=== PATIENT | male | born 1960 | race Caucasian/White ===

== ENCOUNTER 2018-11-08 12:31 | Outpatient (RCR) | payer OTHER ==
[2018-11-08 12:48] LABS: BASOPHILS % (AUTO) 0 % (0-10); EOSINOPHILS # (AUTO) 0.1 10^3/uL (0.0-0.3); EOSINOPHILS % (AUTO) 2 % (0-10); HEMATOCRIT 42 % (40-54); HEMOGLOBIN 14.4 G/DL (13.3-17.7); LYMPHOCYTES # (AUTO) 2.7 X 10^3 (1.0-4.0); LYMPHOCYTES % (AUTO) 36 % (12-44); MEAN CORPUSCULAR HEMOGLOBIN 34 PG (25-34); MEAN CORPUSCULAR HGB CONC 34 G/DL (32-36); MEAN CORPUSCULAR VOLUME 101 FL (80-99); MEAN PLATELET VOLUME 10.5 FL (7.4-10.4); MONOCYTES # (AUTO) 0.9 X 10^3 (0.0-1.0); MONOCYTES % (AUTO) 11 % (0-12); NEUTROPHILS # (AUTO) 3.8 X 10^3 (1.8-7.8); NEUTROPHILS % (AUTO) 51 % (42-75); PLATELET COUNT 182 10^3/uL (130-400); RED CELL DISTRIBUTION WIDTH 12.5 % (10.0-14.5); WHITE BLOOD COUNT 7.5 10^3/uL (4.3-11.0)
== END 2019-02-06 | disposition home or self-care (01) ==
LOC: LAB 12:31
PROVIDERS: ATTEND Pediatrics
DX: R19.7 Diarrhea, unspecified (principal)
CPT/HCPCS: 36415; 85025; 87015; 87045; 87046; 87328; 87329; 87899

== ENCOUNTER 2019-07-16 22:39 | Inpatient (IN) | payer SELFPAY ==
[~2019-07-16] VITALS: Ht 164 cm; Wt 108.0 kg
[2019-07-16 23:06] LABS: CLARITY,URINE CLEAR; COLOR,URINE YELLOW; GLUCOSE, URINE (UA) NEGATIVE (NEGATIVE); PH,URINE 6.5 (5-9); PROTEIN,URINE 2+ (NEGATIVE)
[2019-07-16 23:07] LABS: KETONES,URINE NEGATIVE (NEGATIVE); NITRITE,URINE NEGATIVE (NEGATIVE)
[2019-07-16 23:08] LABS: BACTERIA,URINE TRADE /HPF; BILIRUBIN,URINE 1+ (NEGATIVE); LEUKOCYTE ESTERASE ,URINE NEGATIVE (NEGATIVE)
[2019-07-16] MEDS ORDERED: ONDANSETRON 4 MG/2 ML (SDV) Z0FRAN IVP ONE (23:15)
[2019-07-16] MEDS ORDERED: fentaNYL INJECTION 100 MCG/2 ML AMP IVP ONE (23:15)
[2019-07-16] MEDS ORDERED: IOHEXOL 350 MG/ML 150 ML (OMNIPAQUE 350) VIAL IV ONE (23:15)
[2019-07-16] MEDS ORDERED: HOLD METFORMIN - RECEIVED CONTRAST 20 ML VIAL IV SCH (23:15)
[2019-07-16] MEDS ORDERED: LACTATED RINGERS 1,000 ML IV SCH (23:15)
[2019-07-16] MEDS ORDERED: CATHETER FLUSH 10 ML SYR IV PRN (23:15)
[2019-07-16] MEDS ORDERED: NS 100 ML (IVPB) BAG IV ONE (23:15)
--- NOTE | 2019-07-16 23:15 | ED Abdominal Pain ---
General Stated Complaint: VOMITING; DIARRHEA; LWR BACK PAIN Source of Information: Patient Exam Limitations: No Limitations History of Present Illness Date Seen by Provider: Jul 16, 2019 Time Seen by Provider: 22:49 Initial Comments patient presents to ER with his spouse with chief complaint of abdominal pain worsening over the past couple days. Today's become more severe and his Percocet that he uses for his back pain did not touch it. His pain is in his all of her belly as well as in his bilateral low back pain. He says last time it happened like this he had to have his abdominal aortic aneurysm ballooned. He's had difficulty with walking and feeling like he is getting worsening pain in his legs just like before he had to have his iliacs stented open. He's had a percutaneous stent of his aortic aneurysm as well as both iliacs. He's not having any dysuria fever chills or to give some nausea earlier. He had a bowel movement earlier today. He is not feeling nauseated presently. He's had his gallbladder out surgically. He follows with Dr. Mcclellan, cardiology. His abdominal aortic aneurysm was at [facility]. He's been under a lot of stress for the past couple days because he recently lost son and qlplfyre-bc-cdt in a traumatic way. Dr. Juarez started him on citalopram 3 days ago and he was concerned maybe that was causing his abdominal pain. He does not use oxygen at baseline. Allergies and Home Medications Allergies Coded Allergies: No Known Drug Allergies (Unverified , 07/16/19) Patient Home Medication List Home Medication List Reviewed: Yes Review of Systems Review of Systems Constitutional: No chills, No malaise EENTM: No Blurred Vision, No Double Vision Respiratory: Denies Cough, Denies Orthopnea Cardiovascular: Denies Chest Pain, Denies Lightheadedness Gastrointestinal: Denies Abdomen Distended; Abdominal Pain; Denies Blood Streaked Stools, Denies Constipated, Denies Diarrhea; Nausea, Poor Fluid Intake, Vomiting Genitourinary: Denies Burning, Denies Discharge Musculoskeletal: see HPI, back pain; No joint pain, No joint swelling, No neck pain Skin: No change in color, No dryness Psychiatric/Neurological: See HPI; Denies Anxiety, Denies Depressed All Other Systems Reviewed Negative Unless Noted: Yes Past Mruvheu-Dxfnqc-Ybsweq Hx Patient Social History Alcohol Use: Denies Use Recreational Drug Use: No Smoking Status: Never a Smoker Recent Foreign Travel: No Physical Exam Vital Signs Vital Signs - First Documented 07/16/19 23:48 Temp 36.7 Pulse 84 Resp 22 B/P (MAP) 143/62 (89) Pulse Ox 94 O2 Delivery Nasal Cannula O2 Flow Rate 2.00 Capillary Refill : Height/Weight/BMI Height: '" Weight: lbs. oz. kg; BMI Method: General Appearance: WD/WN, no apparent distress HEENT: PERRL/EOMI, normal ENT inspection, pharynx normal (oropharynx is mildly dry) Neck: non-tender, full range of motion Respiratory: chest non-tender, no accessory muscle use, respiratory distress (m ild), decreased breath sounds Cardiovascular: normal peripheral pulses, regular rate, rhythm, no edema Peripheral Pulses: 2+ Radial Pulses (R), 2+ Radial Pulses (L) Gastrointestinal: normal bowel sounds (quiescent), soft, no organomegaly; No guarding, No rebound; tenderness (all 4 quadrants), other (. Negative for Mc [place]'s point tenderness, Rovsing sign) Back: normal inspection, no vertebral tenderness Neurologic/Psychiatric: alert, normal mood/affect, oriented x 3 Focused Exam Lactate Level 07/16/19 23:06: Lactic Acid Level 1.25 Lactic Acid Level Laboratory Tests Test 07/16/19 23:06 Lactic Acid Level 1.25 MMOL/L (0.50-2.00) Progress/Results/Core Measures Results/Orders Lab Results Laboratory Tests Test 07/16/19 22:55 07/16/19 23:06 07/16/19 23:28 Range/Units Urine Color YELLOW Urine Clarity CLEAR Urine pH 6.5 5-9 Urine Specific [place] 1.020 1.016-1.022 Urine Protein 2+ H NEGATIVE Urine Glucose (UA) NEGATIVE NEGATIVE Urine Ketones NEGATIVE NEGATIVE Urine Nitrite NEGATIVE NEGATIVE Urine Bilirubin 1+ H NEGATIVE Urine Urobilinogen 0.2 < = 1.0 MG/DL Urine Leukocyte Esterase NEGATIVE NEGATIVE Urine RBC (Auto) NEGATIVE NEGATIVE Urine RBC NONE /HPF Urine WBC NONE /HPF Urine Crystals NONE /LPF Urine Bacteria TRADE /HPF Urine Casts NONE /LPF Urine Mucus NEGATIVE /LPF Urine Culture Indicated NO White Blood Count 11.8 H 4.3-11.0 10^3/uL Red Blood Count 5.75 4.35-5.85 10^6/uL Hemoglobin 19.0 H 13.3-17.7 G/DL Hematocrit 60 H 40-54 % Mean Corpuscular Volume 104 H 80-99 FL Mean Corpuscular Hemoglobin 33 25-34 PG Mean Corpuscular Hemoglobin Concent 32 32-36 G/DL Red Cell Distribution Width 15.0 H 10.0-14.5 % Platelet Count 150 130-400 10^3/uL Mean Platelet Volume 11.5 H 7.4-10.4 FL Neutrophils (%) (Auto) 92 H 42-75 % Lymphocytes (%) (Auto) 3 L 12-44 % Monocytes (%) (Auto) 5 0-12 % Eosinophils (%) (Auto) 0 0-10 % Basophils (%) (Auto) 0 0-10 % Neutrophils # (Auto) 10.9 H 1.8-7.8 X 10^3 Lymphocytes # (Auto) 0.3 L 1.0-4.0 X 10^3 Monocytes # (Auto) 0.6 0.0-1.0 X 10^3 Eosinophils # (Auto) 0.0 0.0-0.3 10^3/uL Basophils # (Auto) 0.0 0.0-0.1 10^3/uL Neutrophils % (Manual) 90 % Monocytes % (Manual) 6 % Reactive Lymphocytes 4 % Macrocytosis SLIGHT Sodium Level 139 135-145 MMOL/L Potassium Level 3.9 3.6-5.0 MMOL/L Chloride Level 89 L 98-107 MMOL/L Carbon Dioxide Level 33 H 21-32 MMOL/L Anion Gap 17 H 5-14 MMOL/L Blood Urea Nitrogen 32 H 7-18 MG/DL Creatinine 1.25 0.60-1.30 MG/DL Estimat Glomerular Filtration Rate 59 BUN/Creatinine Ratio 26 Glucose Level 145 H 70-105 MG/DL Lactic Acid Level 1.25 0.50-2.00 MMOL/L Calcium Level 9.7 8.5-10.1 MG/DL Corrected Calcium 9.3 8.5-10.1 MG/DL Total Bilirubin 0.6 0.1-1.0 MG/DL Aspartate Amino Transf (AST/SGOT) 58 H 5-34 U/L Alanine Aminotransferase (ALT/SGPT) 83 H 0-55 U/L Alkaline Phosphatase 102 40-136 U/L Troponin I < 0.30 <0.30 NG/ML Total Protein 8.5 H 6.4-8.2 GM/DL Albumin 4.5 3.2-4.5 GM/DL Lipase 10 8-78 U/L Blood Gas Puncture Site LEFT WRIST Blood Gas Patient Temperature 36.7 Arterial Blood pH 7.36 L 7.37-7.43 Arterial Blood Partial Pressure CO2 71 *H 35-45 MMHG Arterial Blood Partial Pressure O2 63 L 79-93 MMHG Arterial Blood HCO3 40 H 23-27 MMOL/L Arterial Blood Total CO2 42.3 H 21.0-31.0 MMOL/L Arterial Blood Oxygen Saturation 91 L 94-100 % Arterial Blood Base Excess 11.8 H -2.5-2.5 MMOL/L Mani Test NEGATIVE Blood Gas Ventilator Setting NO Blood Gas Inspired Oxygen 2 My Orders Orders - MAHSA ROSARIO Ua Culture If Indicated (07/16/19 22:44) Ed Iv/Invasive Line Start (07/16/19 23:05) Ekg Tracing (07/16/19:05) Troponin I Fs (07/16/19 23:05) Cbc With Automated Diff (07/16/19:05) Comprehensive Metabolic Panel (07/16/19 23:05) Lactic Acid Analyzer (07/16/19 23:05) Lactated Ringers (Lr 1000 Ml Iv Solution (07/16/19 23:15) Lipase (07/16/19 23:05) Fentanyl Injection (Sublimaze Injection (07/16/19 23:15) Ct Abdomen/Pelvis W (07/16/19 23:05) Ondansetron Injection (Zofran Injectio (07/16/19 23:15) Iohexol Injection (Omnipaque 350 Mg/Ml 1 (07/16/19 23:15) Received Contrast (Hold Metformin- Contr (07/16/19 23:15) Sodium Chloride Flush (Catheter Flush Sy (07/16/19 23:15) Ns (Ivpb) (Sodium Chloride 0.9% Ivpb Bag (07/16/19 23:15) Arterial Blood Gas (07/16/19 23:16) Chest Pa/Lat (2 View) (07/16/19 23:16) Manual Differential (07/16/19 23:06) Albuterol/Ipra Inhalation Soln (Duoneb I (07/17/19 00:45) Svn Small Volume Nebulizer (07/17/19 00:38) Methylprednisolone Sod Succ (Solu-Medrol (07/17/19 00:45) Acetaminophen Tablet (Tylenol Tablet) (07/17/19 01:00) Medications Given in ED Current Medications Medications Dose Ordered Sig/Christal Route Start Time Stop Time Status Last Admin Dose Admin Acetaminophen 1,000 mg ONCE ONCE PO 07/17/19 01:00 07/17/19 01:01 DC 07/17/19 01:08 1,000 MG Albuterol/ Ipratropium 3 ml ONCE ONCE INH 07/17/19 00:45 07/17/19 00:46 DC 07/17/19 00:44 3 ML Fentanyl Citrate 100 mcg ONCE ONCE IVP 07/16/19 23:15 07/16/19 23:16 DC 07/16/19 23:20 100 MCG Iohexol 125 ml ONCE ONCE IV 07/16/19 23:15 07/16/19 23:17 DC 07/17/19 00:01 125 ML Methylprednisolone Sodium Succinate 40 mg ONCE ONCE IV 07/17/19 00:45 07/17/19 00:46 DC 07/17/19 00:44 40 MG Ondansetron HCl 4 mg ONCE ONCE IVP 07/16/19 23:15 07/16/19 23:16 DC 07/16/19 23:20 4 MG Sodium Chloride 10 ml NEEDED PRN IV 07/16/19 23:15 07/17/19 00:02 10 ML Sodium Chloride 100 ml ONCE ONCE IV 07/16/19 23:15 07/16/19 23:17 DC 07/17/19 00:01 80 ML Vital Signs/I&O 07/16/19 23:48 Temp 36.7 Pulse 84 Resp 22 B/P (MAP) 143/62 (89) Pulse Ox 94 O2 Delivery Nasal Cannula O2 Flow Rate 2.00 Progress Progress Note #1: Time: 23:14 Progress Note Labs and imaging of his abdomen. Concern because he is a vasculopath he could be having mesenteric ischemia, abdominal aortic aneurysm/dissection, gastroenteritis, pancreatitis, colitis or bowel obstruction. They did put him on 2 L by nasal cannula as he was consistently 86-88% on room air. We'll obtain chest x-ray and an ABG. Progress Note #2: Time: 00:36 Progress Note Gastroenteritis seems like the most likely cause of his abdominal discomfort nausea and vomiting. His weakness shortness of breath and hypoxia on arrival but more likely be due to a COPD exacerbation. He still smokes about a pack and a half cigarettes per day. His lungs are very tight so we'll give him a DuoNeb get a 2 view chest x-ray. Progress Note #3: Time: 00:56 Progress Note Pain is significantly improved. After the breathing treatment his breathing is subjectively better and he has about 20% more airflow heard on auscultation. Still no wheezing. On 2 L his oxygen sats are staying in the mid to low 90s. Again we have encouraged him to go inpatient and he is hesitant. He wants to talk to his about it who is out making a phone call. Progress Note #4: Time: 01:21 Progress Note After multiple discussions with the patient and his family has agreed to go the hospital however he wants to have his drive him there. We have explained to him that she does not have oxygen or the ability to move him in a timely fashion if something were to happen between here and there. He says he accepts these risks. We have explained to him that he could get worse to the point where he may need more critical interventions upon arrival then if he would just go by a mbulance. We've also explained to him that his risk of even go as far as disability or and its against our medical advice to go with private vehicle. He is accepted these risks so were going to allow him to transit by private vehicle to [facility]. Initial ECG Impression Date: Jul 16, 2019 Initial ECG Impression Time: 23:06 Initial ECG Rate: 82 Initial ECG Rhythm: Normal Sinus Initial ECG Intervals: QT (470) Initial ECG Impression: Normal, Nonspecific Changes Initial ECG Comparisson: No Previous ECG Available Comment PVCs. No ST elevation or depression. Normal sinus rhythm. Diagnostic Imaging Diagonstic Imaging: CT Plain Films/CT/US/NM/MRI: abdomen, pelvis Comments Nonspecific fluid in nondistended small bowel and the right colon. Minimally distended stomach with fluid. Consider gastroenteritis. Reviewed: Reviewed [place] Study, Reviewed by Me Diagonstic Imaging: Xray Plain Films/CT/US/NM/MRI: chest (2v) Comments No acute cardiopulmonary process noted on a 2 view chest x-ray. Reviewed: Reviewed by Me Departure Communication (Admissions) Time/Spoke to Admitting Phy: 01:20 Discussed case lab imaging findings with Dr. Mann she agrees to accept the patient for admission to the stepdown unit on Vapotherm. Impression Primary Impression: COPD with exacerbation Additional Impressions: Respiratory failure with hypoxia and hypercapnia Qualified Codes: J96.21 - Acute and chronic respiratory failure with hypoxia; J96.22 - Acute and chronic respiratory failure with hypercapnia Gastroenteritis and colitis, viral Disposition: ADMITTED INPATIENT Condition: Stable Admissions Decision to Admit Reason: Admit from ER (General) Decision to Admit/Date: Jul 17, 2019 Time/Decision to Admit Time: 00:37 Departure-Patient Inst. Referrals: MIO JUAREZ MD (PCP/Family) Primary Care Physician MAHSA ROSARIO Jul 16, 2019 23:15 POS
[2019-07-16 23:41] LABS: ABG PCO2 71 MMHG (35-45); ABG PH 7.36 (7.37-7.43)
[2019-07-16 23:42] LABS: ABG BASE EXCESS 11.8 MMOL/L (-2.5-2.5); ABG OXYGEN SATURATION 91 % (94-100); ABG PO2 63 MMHG (79-93); ABG TCO2 42.3 MMOL/L (21.0-31.0); ALLENS TEST NEGATIVE; INSPIRED O2 2; PATIENT TEMP 36.7; VENTILATOR NO
[2019-07-16 23:44] LABS: BUN/CREATININE RATIO 26; CALCIUM 9.7 MG/DL (8.5-10.1); CARBON DIOXIDE 33 MMOL/L (21-32); CHLORIDE 89 MMOL/L (98-107); CREATININE SERUM 1.25 MG/DL (0.60-1.30); GFR ESTIMATED 59; GLUCOSE 145 MG/DL (70-105); POTASSIUM 3.9 MMOL/L (3.6-5.0); SODIUM 139 MMOL/L (135-145)
[2019-07-16 23:45] LABS: ALANINE AMINOTRANSFERASE 83 U/L (0-55); ALBUMIN 4.5 GM/DL (3.2-4.5); ALKALINE PHOSPHATASE 102 U/L (40-136); BILIRUBIN,TOTAL 0.6 MG/DL (0.1-1.0); LIPASE 10 U/L (8-78); TOTAL PROTEIN 8.5 GM/DL (6.4-8.2)
[2019-07-17] VITALS (23 sets, daily range): BP systolic 121–162; BP diastolic 60–119
[2019-07-17 00:08] LABS: BASOPHILS % (AUTO) 0 % (0-10); EOSINOPHILS % (AUTO) 0 % (0-10); HEMATOCRIT 60 % (40-54); LYMPHOCYTES # (AUTO) 0.3 X 10^3 (1.0-4.0); LYMPHOCYTES % (AUTO) 3 % (12-44); MEAN CORPUSCULAR HEMOGLOBIN 33 PG (25-34); MEAN CORPUSCULAR HGB CONC 32 G/DL (32-36); MEAN CORPUSCULAR VOLUME 104 FL (80-99); MEAN PLATELET VOLUME 11.5 FL (7.4-10.4); MONOCYTES # (AUTO) 0.6 X 10^3 (0.0-1.0); MONOCYTES % (AUTO) 5 % (0-12); NEUTROPHILS # (AUTO) 10.9 X 10^3 (1.8-7.8); NEUTROPHILS % (AUTO) 92 % (42-75); PLATELET COUNT 150 10^3/uL (130-400); WHITE BLOOD COUNT 11.8 10^3/uL (4.3-11.0)
[2019-07-17 00:15] LABS: MONOCYTES % (MANUAL) 6 %; NEUTROPHILS % (MANUAL) 90 %; REACTIVE LYMPHOCYTES 4 %
[2019-07-17] MEDS ORDERED: methylPREDNISolone 40 MG/ML (Solu-MEDROL) VIAL IV ONE (00:45)
[2019-07-17] MEDS ORDERED: RT-ALBUTEROL/IPRATROPIUM 3 ML (DUONEB) VIAL INH ONE (00:45)
[2019-07-17] MEDS ORDERED: ACETAMINOPHEN 500 MG TAB (TYLENOL) PO ONE (01:00)
--- NOTE | 2019-07-17 01:19 | NUR ---
Patient is refusing to go to [facility] by ambulance for admission. Patient is insistent on going POV. Patient is currently on 2 liters of oxygen and is unable to maintain SPO2. Patient is advised that if he goes POV, he will not have access to oxygen and he is currently unable to maintain his SPO2. Patient is advised that if he goes POV he could have a decline in condition up to and including . Patient is also advised that if he goes by ambulance, he could have continued monitoring and intervention of any problems that may arise. Patient acknowledges verbally the risks and benefits. Patient still wants to go POV. Refusal form is signed.
[2019-07-17] MEDS ORDERED: RT-ALBUTEROL/IPRATROPIUM 3 ML (DUONEB) VIAL INH PRN (05:30)
[2019-07-17 05:35] LABS: BASOPHILS % (AUTO) 0 % (0-10); EOSINOPHILS % (AUTO) 0 % (0-10); HEMATOCRIT 58 % (40-54); HEMOGLOBIN 18.4 G/DL (13.3-17.7); LYMPHOCYTES # (AUTO) 0.3 X 10^3 (1.0-4.0); LYMPHOCYTES % (AUTO) 2 % (12-44); MEAN CORPUSCULAR HEMOGLOBIN 32 PG (25-34); MEAN CORPUSCULAR HGB CONC 32 G/DL (32-36); MEAN CORPUSCULAR VOLUME 102 FL (80-99); MEAN PLATELET VOLUME 11.4 FL (7.4-10.4); MONOCYTES # (AUTO) 0.2 X 10^3 (0.0-1.0); MONOCYTES % (AUTO) 2 % (0-12); NEUTROPHILS # (AUTO) 12.1 X 10^3 (1.8-7.8); NEUTROPHILS % (AUTO) 96 % (42-75); PLATELET COUNT 170 10^3/uL (130-400); RED CELL DISTRIBUTION WIDTH 14.7 % (10.0-14.5); WHITE BLOOD COUNT 12.7 10^3/uL (4.3-11.0)
--- NOTE | 2019-07-17 05:38 | Pulmonary Consultation ---
History of Present Illness History of Present Illness Date Seen by Provider: Jul 17, 2019 Time Seen by Provider: 05:33 Date of Admission History of Present Illness 58yo with hx of aortic aneurysm presented to ED secondary to worsening abdominal pain. He's had difficulty with walking and feeling like he is getting worsening pain in his legs just like before he had to have his iliacs stented open. Pt was found to have COPDAE while in the ED. ABG shows acute respiratory acidosis. Allergies and Home Medications Allergies Coded Allergies: No Known Drug Allergies (Unverified , 07/16/19) Past Yrbeeew-Ucimfa-Tgcfir Hx Patient Social History Alcohol Use: Denies Use Recreational Drug Use: No Smoking Status: Never a Smoker Type Used: Cigarettes Recent Foreign Travel: No Contact w/Someone Who Travel: No Recent Infectious Disease Expo: No Physical Abuse: No Sexual Abuse: No Mistreated: No Fear: No Immunizations Up To Date Date of Influenza Vaccine: Jun 16, 2019 Seasonal Allergies Seasonal Allergies: No Past Medical History Surgeries: Yes (Aortic Stents) Gallbladder Respiratory: No Cardiac: Yes Aneurysm Neurological: No Genitourinary: No Gastrointestinal: No Musculoskeletal: No Endocrine: No HEENT: No Cancer: No Psychosocial: No Integumentary: No Review of Systems Time Seen by Provider: 07:40 Constitutional: Chills, Sweats, Weakness, Malaise; No: Fever Eyes: No: Pain, Vision change, Conjunctivae inflammation, Eyelid inflammation, Other, Redness ENT: Nose congestion; No: Ear pain, Ear discharge, Nose pain, Nose discharge, Mouth pain, Mouth swelling, Throat pain, Throat swelling, Other Respiratory: Cough, Shortness of breath, SOB with excertion, Wheezing, Sputum Cardiovascular: Palpitations, Orthopnea, Paroxysmal Noc. Dyspnea; No: Chest Pain, Edema, Lt Headedness, Other Gastrointestinal: No: Nausea, Vomiting, Abdominal Pain, Diarrhea, Constipation, Melena, Hematochezia, Other Sepsis Event Evaluation Height, Weight, BMI Height: '" Weight: lbs. oz. kg; 41.00 BMI Method: Exam Exam Vital Signs Date Time Temp Pulse Resp B/P (MAP) Pulse Ox O2 Delivery O2 Flow Rate FiO2 07/17/19 05:14 87 94 07/17/19 01:38 104 26 116/63 92 Nasal Cannula 2.00 07/16/19 23:48 36.7 84 22 143/62 (89) 94 Nasal Cannula 2.00 I & O 07/17/19 07:00 Intake Total 1000 ml Balance 1000 ml Height & Weight Height: '" Weight: lbs. oz. kg; 41.00 BMI Method: General Appearance: Anxious, Chronically ill, Moderate Distress, Obese HEENT: PERRL/EOMI, Pharynx Normal Neck: Full Range of Motion, Non Tender, Supple Respiratory: Chest Non Tender, Crackles, Decreased Breath Sounds Cardiovascular: Regular Rate, Rhythm, No Edema, No Gallop Capillary Refill: Less Than 3 Seconds Peripheral Pulses: 2+ Radial Pulses (R), 2+ Radial Pulses (L) Gastrointestinal: normal bowel sounds (quiescent), soft, no organomegaly; No guarding, No rebound; tenderness (all 4 quadrants), other (. Negative for McBurney's point tenderness, Rovsing sign) Neurologic/Psychiatric: Alert, Oriented x3 Skin: Normal Color, Warm/Dry Lymphatic: No Adenopathy Results Lab Laboratory Tests 07/16/19 23:06 Assessment/Plan Assessment/Plan Acute on chronic respiratory failure -vent to mask PRN -Pt would benefit from home vent to mask -C02 71 COPDAE- Pt does not have 02 -SVNS -Solumedrol -Repeat ABG at 1300 -vent to mask PRN OHS Hx of abdominal aortic aneurysm SANDRA SHEPARD DO Jul 17, 2019 05:38 POS
[2019-07-17 05:58] LABS: ALBUMIN 4.1 GM/DL (3.2-4.5); BILIRUBIN,TOTAL 0.4 MG/DL (0.1-1.0); CALCIUM 8.9 MG/DL (8.5-10.1); CREATININE SERUM 1.41 MG/DL (0.60-1.30); MAGNESIUM 1.7 MG/DL (1.6-2.4); PHOSPHORUS 2.5 MG/DL (2.3-4.7); TOTAL PROTEIN 7.3 GM/DL (6.4-8.2)
[2019-07-17] MEDS ORDERED: PROMETHAZINE INJ 25 MG/ML (PHENERGAN) AMP IV PRN (06:15)
[2019-07-17] MEDS ORDERED: KETAMINE 50 MG/ML 10 ML VIAL IV PRN (06:15)
[2019-07-17] MEDS ORDERED: ONDANSETRON 4 MG/2 ML (SDV) Z0FRAN IV PRN (06:15)
[2019-07-17] MEDS ORDERED: MIDAZOLAM 5 MG/5 ML (VERSED) VIAL IV PRN (06:15)
[2019-07-17] MEDS: LACTATED RINGERS 1,000 ML IV SCH ×2 (06:15→18:07)
--- NOTE | 2019-07-17 06:32 | Diagnostic Imaging Report ---
PROCEDURE: CT abdomen and pelvis with contrast. TECHNIQUE: Multiple contiguous axial images were obtained through the abdomen and pelvis after administration of intravenous contrast. Auto Exposure Controls were utilized during the CT exam to meet ALARA standards for radiation dose reduction. INDICATION: Abdominal pain, nausea, vomiting, diarrhea. FINDINGS: There is mildly elevated intraluminal fluid load within the stomach, small bowel and proximal colon, no transition zone. No milind obstruction. Pattern raises the question of nonspecific gastroenteritis. No substantial bowel wall thickening and there was no pericolonic or perienteric edema. The gallbladder surgically absent. The bile ducts unremarkable for postcholecystectomy state. The spleen, adrenals and pancreas negative. The aortoiliac vessels calcified. No aneurysm, adenopathy or mass. There is no appendicitis or diverticulitis. IMPRESSION: 1. Nonobstructive pattern, however, increased fluid load within the bowel raises the question of nonspecific gastroenteritis. No segmental bowel wall thickening, perforation, obstruction or abscess. 2. Prior cholecystectomy with unremarkable unobstructed urinary tracts Dictated by: Dictated on workstation # [id number]
[2019-07-17 07:21] LABS: ABG BASE EXCESS 8.4 MMOL/L (-2.5-2.5); ABG OXYGEN SATURATION 97 % (94-100); ABG PCO2 54 MMHG (35-45); ABG PH 7.41 (7.37-7.43); ABG PO2 88 MMHG (79-93); ABG TCO2 34.8 MMOL/L (21.0-31.0)
[2019-07-17 07:23] LABS: ALLENS TEST YES-POS; INSPIRED O2 5; PATIENT TEMP 37.1; VENTILATOR NO
[2019-07-17] MEDS: RT-ALBUTEROL/IPRATROPIUM 3 ML (DUONEB) VIAL INH SCH ×5 (07:36→23:06)
--- NOTE | 2019-07-17 08:21 | Diagnostic Imaging Report ---
INDICATION: Desaturation, shortness of breath FINDINGS: Air trapping and COPD chronic. No focal consolidation, effusion or pneumothorax. There is some thickening of the central airways and a component of reactive airway disease could not be excluded. IMPRESSION: No consolidating pneumonia. Mild thickening of the central airways and mild symmetrical air trapping. No failure pattern or pleural abnormality. Dictated by: Dictated on workstation # [id number]
[2019-07-17] MEDS: methylPREDNISolone 40 MG/ML (Solu-MEDROL) VIAL IV SCH ×3 (08:23→18:07)
--- NOTE | 2019-07-17 08:59 | History & Physical-Hospitalist ---
History of Present Illness HPI/Chief Complaint Pt is a 58yoCM with a PMH of PAD and COPD who presented to the ER due to abdominal pain, vomiting, and diarrhea. Definitive symptoms started yesterday morning and progressed throughout the day. He BMB get cramping abdominal pain and was unable to keep anything down so decided to seek evaluation in the emergency room. He was found to be quite short of breath on arrival and an ABG revealed hypercapnic respiratory failure. He was admitted to the ICU for his respiratory status. He denies a known diagnosis of COPD but he does smoke a pack and a half a day and uses a rescue inhaler as needed. He is on no other in halers. His only other medications are Percocet and Lasix. He reports he takes his Lasix when necessary for water retention but denies a history of heart failure. He follows with Dr. Mcclellan at [facility] for his heart disease. He denies any abdominal symptoms today. He is still on 5 L per NC and he normally does not wear oxygen at home. Source: patient Date Seen 07/17/19 Time Seen by a Provider: 08:53 Attending Physician Lorenzo Garcia MD PCP Pola Hayward MD Referring Physician Date of Admission Jul 17, 2019 at 01:25 Home Medications & Allergies Home Medications Reviewed patient Home Medication Reconciliation performed by pharmacy medication reconciliations metrology technician and/or nursing. Patients Allergies have been reviewed. Allergies Allergies Coded Allergies No Known Drug Allergies (Uijyovwipg97/23/19) Past Hrycfpv-Nvlunj-Rvitue Hx Past Med/Social Hx: Reviewed Nursing Past Med/Soc Hx Patient Social History Alcohol Use: Denies Use Recreational Drug Use: No Smoking Status: Current Everyday Smoker Cigaretts per day: 30 Type Used: Cigarettes Recent Foreign Travel: No Contact w/other who traveled: No Recent Infectious Disease Expo: No Immunizations Up To Date Date of Influenza Vaccine: Jun 16, 2019 Seasonal Allergies Seasonal Allergies: No Past Medical History Surgeries: Gallbladder AAA graft Respiratory: COPD Cardiac: Aneurysm, Peripheral Vascular Family History Reviewed Nursing Family Hx No Pertinent Family Hx Review of Systems Constitutional: No chills, No fever Respiratory: No dyspnea on exertion; short of breath, wheezing Cardiovascular: no symptoms reported Gastrointestinal: abdominal pain, diarrhea, nausea, vomiting Genitourinary: no symptoms reported Musculoskeletal: back pain (chronic) Skin: no symptoms reported Psychiatric/Neurological: No Symptoms Reported Physical Exam Physical Exam Vital Signs Vital Signs - First Documented 07/16/19 23:48 Temp 36.7 Pulse 84 Resp 22 B/P (MAP) 143/62 (89) Pulse Ox 94 O2 Delivery Nasal Cannula O2 Flow Rate 2.00 Capillary Refill : Less Than 3 Seconds Height, Weight, BMI Height: '" Weight: lbs. oz. kg; 41.00 BMI Method: General Appearance: No Apparent Distress, WD/WN, Obese HEENT: Moist Mucous Membranes; No Scleral Icterus (L), No Scleral Icterus (R) Respiratory: Lungs Clear, No Accessory Muscle Use, No Respiratory Distress, Other (on 5lpm) Cardiovascular: Regular Rate, Rhythm, No Edema, No Murmur, Normal Peripheral Pulses Gastrointestinal: Normal Bowel Sounds, Non Tender, Soft; No Guarding, No Rebound Extremity: No Calf Tenderness, No Pedal Edema Neurologic/Psychiatric: Alert, Oriented x3, Normal Mood/Affect Skin: Normal Color, Warm/Dry Results Results/Procedures Labs Laboratory Tests 07/16/19 23:06 07/17/19 05:29 Patient resulted labs reviewed. Imaging: Reviewed Imaging Report Assessment/Plan Admission Diagnosis COPD Exacerbation with hypercapnic and hypoxic respiratory failure Admission Status: Inpatient Order (span 2 midnights) Reason for Inpatient Admission: On oxygen IV steroids, will likely take more than 2 midnights to stabilize for discharge Assessment and Plan COPD with Acute Exacerbation hypercpanic and hypoxic respiratory failure ?Obesity hypoventilation syndrome Continue IV steroids Pulm consulted, appreciate recs No evidence of pna so no abx needed Titrate oxygen to keep sats >90 MAT protocol Will add advair HTN PAD s/p AAA repair Request records from [facility] BP elevated in the 150s this AM Will likely need antihypertensives if persists after pain treated Chronic Back Pain Spinal Stenosis Continue home percocet Tobacco Abuse Recommend Cessation Diagnosis/Problems Diagnosis/Problems (1) PAD (peripheral artery disease) (2) S/P AAA repair (3) COPD with exacerbation Status: Acute (4) Gastroenteritis and colitis, viral Status: Acute (5) Respiratory failure with hypoxia and hypercapnia Status: Acute Qualifiers: Chronicity: acute on chronic Qualified Codes: J96.21 - Acute and chronic respiratory failure with hypoxia; J96.22 - Acute and chronic respiratory failure with hypercapnia Clinical Quality Measures DVT/VTE Risk/Contraindication: Risk Factor Score Per Nursin RFS Level Per Nursing on Admit: 4+=Very High LORENZO GARCIA MD Jul 17, 2019 08:58 POS
--- NOTE | 2019-07-17 09:46 | Diagnostic Imaging Report ---
INDICATION: COPD COMPARISON: 07/17/2019 at 12:17 a.m. FINDINGS: Single view of the chest demonstrates clear lungs bilaterally. The heart is normal. There is no pneumothorax. Osseous structures are age-appropriate. IMPRESSION: Negative chest Dictated by: Dictated on workstation # [id number]
[2019-07-17] MEDS: ENOXAPARIN 40 MG/0.4 ML (LOVENOX) SYR SC SCH ×2 (10:55→21:25)
[2019-07-17] MEDS: oxyCODONE/APAP 10/325MG (PERCOCET 10) TABLET PO PRN ×3 (11:01→22:48)
[2019-07-17] MEDS: fentaNYL INJECTION 100 MCG/2 ML AMP IV PRN ×3 (12:18→21:25)
[2019-07-17 13:34] LABS: ABG BASE EXCESS 9.1 MMOL/L (-2.5-2.5); ABG OXYGEN SATURATION 91 % (94-100); ABG PO2 71 MMHG (79-93); ABG TCO2 37.2 MMOL/L (21.0-31.0)
[2019-07-17 13:38] LABS: ABG PCO2 71 MMHG (35-45); ABG PH 7.32 (7.37-7.43); PATIENT TEMP 37.6
[2019-07-17] MEDS: RT-ADVAIR HFA 115/21 MCG PER PUFF IH SCH (20:37)
[2019-07-18] VITALS (19 sets, daily range): BP systolic 101–179; BP diastolic 68–129
[2019-07-18] MEDS: methylPREDNISolone 40 MG/ML (Solu-MEDROL) VIAL IV SCH ×5 (00:13→23:28)
[2019-07-18] MEDS: fentaNYL INJECTION 100 MCG/2 ML AMP IV PRN ×4 (00:13→13:58)
[2019-07-18] MEDS ORDERED: ACETAMINOPHEN 325 MG TABLET PO PRN (02:15)
[2019-07-18] MEDS: RT-ALBUTEROL/IPRATROPIUM 3 ML (DUONEB) VIAL INH SCH ×6 (02:35→21:18)
[2019-07-18 03:31] LABS: BASOPHILS % (AUTO) 0 % (0-10); EOSINOPHILS % (AUTO) 0 % (0-10); HEMATOCRIT 56 % (40-54); HEMOGLOBIN 17.6 G/DL (13.3-17.7); LYMPHOCYTES # (AUTO) 0.6 X 10^3 (1.0-4.0); LYMPHOCYTES % (AUTO) 6 % (12-44); MEAN CORPUSCULAR HEMOGLOBIN 33 PG (25-34); MEAN CORPUSCULAR HGB CONC 32 G/DL (32-36); MEAN CORPUSCULAR VOLUME 103 FL (80-99); MEAN PLATELET VOLUME 11.8 FL (7.4-10.4); MONOCYTES # (AUTO) 0.5 X 10^3 (0.0-1.0); MONOCYTES % (AUTO) 6 % (0-12); NEUTROPHILS # (AUTO) 8.2 X 10^3 (1.8-7.8); NEUTROPHILS % (AUTO) 88 % (42-75); PLATELET COUNT 140 10^3/uL (130-400); RED CELL DISTRIBUTION WIDTH 14.4 % (10.0-14.5); WHITE BLOOD COUNT 9.3 10^3/uL (4.3-11.0)
[2019-07-18 03:49] LABS: BUN/CREATININE RATIO 27; CARBON DIOXIDE 28 MMOL/L (21-32); CHLORIDE 92 MMOL/L (98-107); GFR ESTIMATED > 60; GLUCOSE 136 MG/DL (70-105); PHOSPHORUS 3.1 MG/DL (2.3-4.7); POTASSIUM 3.8 MMOL/L (3.6-5.0); SODIUM 136 MMOL/L (135-145)
[2019-07-18 06:54] LABS: ABG BASE EXCESS 9.6 MMOL/L (-2.5-2.5); ABG OXYGEN SATURATION 93 % (94-100); ABG PCO2 70 MMHG (35-45); ABG PO2 74 MMHG (79-93); ABG TCO2 37.8 MMOL/L (21.0-31.0)
[2019-07-18 06:56] LABS: ABG PH 7.33 (7.37-7.43); ALLENS TEST POSITIVE; INSPIRED O2 4 L; PATIENT TEMP 37; VENTILATOR NO
--- NOTE | 2019-07-18 06:58 | NUR ---
Updated Dr. Nur on patient's morning ABG results.
[2019-07-18] MEDS: LACTATED RINGERS 1,000 ML IV SCH (07:03)
--- NOTE | 2019-07-18 07:44 | Diagnostic Imaging Report ---
CHEST 1 VIEW, AP/PA ONLY Indication: COPD exacerbation with hypocapnia Comparison: 07/17/2019 Findings: Increased basilar opacities, greater on the right. No pleural effusion or pneumothorax. Normal heart size and mediastinal contours. Impression: 1. Increased basilar opacities may be on the basis of atelectasis. Attention on follow-up is advised. Dictated by: Dictated on workstation # [id number]
--- NOTE | 2019-07-18 07:48 | Pulmonary Progress Note ---
Subjective Time Seen by a Provider: 07:47 Subjective/Events-last exam Still complains of worsening SOB. Sepsis Event Evaluation Height, Weight, BMI Height: '" Weight: lbs. oz. kg; 41.00 BMI Method: Focused Exam Lactate Level 07/16/19 23:06: Lactic Acid Level 1.25 Exam Exam Vital Signs Date Time Temp Pulse Resp B/P (MAP) Pulse Ox O2 Delivery O2 Flow Rate FiO2 07/18/19 07:00 92 Nasal Cannula 4.00 07/18/19 06:00 66 15 164/78 (106) 95 Nasal Cannula 5.00 07/18/19 05:00 83 10 168/79 (108) 95 Nasal Cannula 5.00 07/18/19 04:00 93 Nasal Cannula 4.00 07/18/19 04:00 37.0 07/18/19 04:00 73 10 143/90 (107) 94 Nasal Cannula 5.00 07/18/19 03:00 80 16 140/109 (119) 94 Nasal Cannula 5.00 07/18/19 02:35 93 Nasal Cannula 5.00 07/18/19 02:00 70 10 140/68 (92) 95 Nasal Cannula 5.00 07/18/19 01:00 81 07/18/19 01:00 80 12 151/85 (107) 94 Nasal Cannula 5.00 07/18/19 00:00 93 Nasal Cannula 4.00 07/18/19 00:00 07/18/19 00:00 78 12 165/79 (107) 91 Nasal Cannula 5.00 07/18/19 00:00 37.2 07/17/19 23:06 92 Nasal Cannula 5.00 07/17/19 23:00 77 19 127/67 (87) 99 Nasal Cannula 5.00 07/17/19 21:00 80 15 157/75 (102) 91 Nasal Cannula 5.00 07/17/19 20:56 Nasal Cannula 5.00 07/17/19 20:55 Nasal Cannula 4.00 07/17/19 20:44 Nasal Cannula 3.00 07/17/19 20:41 Nasal Cannula 3.00 07/17/19 20:37 93 Nasal Cannula 4.00 07/17/19 20:00 93 20 140/84 (102) 97 Nasal Cannula 4.00 07/17/19 20:00 37.0 07/17/19 20:00 93 Nasal Cannula 4.00 07/17/19 19:00 80 16 134/75 (94) 94 Nasal Cannula 4.00 07/17/19 19:00 85 07/17/19 18:00 73 23 129/77 (94) 90 Nasal Cannula 3.00 07/17/19 17:00 71 14 121/92 (102) 93 Nasal Cannula 3.00 07/17/19 16:00 77 11 131/78 (95) 92 Nasal Cannula 3.00 07/17/19 16:00 35.9 07/17/19 16:00 93 Nasal Cannula 3.00 07/17/19 15:10 Nasal Cannula 3.00 07/17/19 15:00 73 9 132/75 (94) 93 Nasal Cannula 4.00 07/17/19 14:55 Nasal Cannula 4.00 07/17/19 14:54 93 Nasal Cannula 4.00 07/17/19 14:00 75 13 148/103 (118) 91 High Flow N/C 5.00 07/17/19 13:00 75 07/17/19 13:00 70 9 148/84 (105) 90 High Flow N/C 5.00 07/17/19 12:00 70 11 138/79 (98) 89 High Flow N/C 5.00 07/17/19 12:00 37.0 07/17/19 11:43 92 Nasal Cannula 5.00 07/17/19 11:00 71 23 121/94 (103) 91 High Flow N/C 5.00 07/17/19 10:39 94 Nasal Cannula 5.00 07/17/19 10:00 70 10 126/78 (94) 91 High Flow N/C 5.00 07/17/19 09:00 70 13 134/119 (124) 94 High Flow N/C 5.00 07/17/19 08:00 76 8 150/76 (100) 95 High Flow N/C 5.00 07/17/19 08:00 93 Nasal Cannula 5.00 I & O 07/18/19 07:00 Intake Total 1265 ml Output Total 1575 ml Balance -310 ml Height & Weight Height: '" Weight: lbs. oz. kg; 41.00 BMI Method: General Appearance: Anxious, Chronically ill, Moderate Distress, Obese HEENT: PERRL/EOMI, Pharynx Normal Neck: Full Range of Motion, Non Tender, Supple Respiratory: Chest Non Tender, Crackles, Decreased Breath Sounds Cardiovascular: Regular Rate, Rhythm, No Edema, No Gallop Capillary Refill: Less Than 3 Seconds Peripheral Pulses: 2+ Radial Pulses (R), 2+ Radial Pulses (L) Gastrointestinal: normal bowel sounds (quiescent), soft, no organomegaly; No guarding, No rebound; tenderness (all 4 quadrants), other (. Negative for McBurney's point tenderness, Rovsing sign) Extremity: No Calf Tenderness, No Pedal Edema Neurologic/Psychiatric: Alert, Oriented x3 Skin: Normal Color, Warm/Dry Lymphatic: No Adenopathy Results Lab Laboratory Tests 07/16/19 23:06 07/17/19 05:29 07/18/19 02:50 Assessment/Plan Assessment/Plan Acute on chronic respiratory failure -vent to mask PRN -Pt would benefit from home vent to mask -C02 71 COPDAE- Pt does not have 02 -Pt will most likely need home 02 -SVNS -Solumedrol -Repeat ABG at 1300 -vent to mask PRN OHS Hx of abdominal aortic aneurysm SANDRA SHEPARD DO Jul 18, 2019 07:48 POS
[2019-07-18] MEDS: RT-ADVAIR HFA 115/21 MCG PER PUFF IH SCH ×2 (08:10→18:30)
[2019-07-18] MEDS: ENOXAPARIN 40 MG/0.4 ML (LOVENOX) SYR SC SCH ×2 (08:25→21:41)
--- NOTE | 2019-07-18 09:30 | NUR ---
CM DISCHARGE PLANNING: Asked to visit with patient by d/t concerns voiced about need of medical equipment/interventions et patient expressing wishes to leave AMA. Upon entry into room patient is sitting in chair at bedside. He is alert et orientated x3. Noted that he is on Vapotherm at 40LPM et 45%o2 at this time. O2 sats are 96-98%. He voiced that he wants to go home today. In talking with him he seems very worried about his financial responsibility. I have left a message with our financial counselor for their assistance et talked with the patient about this. We visited about his need being greater than what he would be able to get a home at this point. Educated him on the machine Vapotherm that he is on et how this is not a piece of equipment that has a home equivalent. He expressed understanding. His family came to visit et encouraged him to also stay et carry out his needed medical care. F/U with his primary care nurse about his Vapotherm. She indicated that he was not tolerating the hospital bi-pap et was in need of reducing his CO2. She will continue to monitor et wean as per dr. dietz. He will have a repeat ABG soon. I asked if she could give his (who has many questions about COPD) some printed out education on COPD. In visiting with them they indicated that they would use [facility] out of [place] phone number [phone] for any medical equipment needs. I gathered information et pricing on anticipated equipment for discharge. Anticipated monthly cost will be $325.00 per/mth for Bi-pap et continuous oxygen. They will also have to have a credit card or bank number before they can set up for monthly charges. Bhavya from [facility] indicated prices as follows: Bi-pap- $161.42 per/mth Regular O2 Concentrator- $145.00 per/mth $12.00 for each small portable tank et refills $22.00 for each large portable tank et refills VS. Transfill Unit- $165.00 per mth (daughter at bedside asked about this d/t finding the tanks it takes for refill) I have been in communication with our financial service liaison Siddhartha and am waiting to hear back from her before this is explored with the patient as he is already quite anxious about cost.
[2019-07-18] MEDS: oxyCODONE/APAP 10/325MG (PERCOCET 10) TABLET PO PRN ×2 (10:13→16:56)
[2019-07-18 10:21] LABS: ABG BASE EXCESS 8.3 MMOL/L (-2.5-2.5); ABG OXYGEN SATURATION 96 % (94-100); ABG PCO2 62 MMHG (35-45); ABG PH 7.36 (7.37-7.43); ABG PO2 88 MMHG (79-93); ABG TCO2 35.8 MMOL/L (21.0-31.0)
[2019-07-18 10:22] LABS: ALLENS TEST POSITIVE; INSPIRED O2 40; PATIENT TEMP 36.7; VENTILATOR NO
[2019-07-18] MEDS ORDERED: OXYC-465 PO (10:31)
[2019-07-18] MEDS ORDERED: FURO40TA4 PO (10:31)
[2019-07-18] MEDS ORDERED: CITA20TA9 PO (10:31)
--- NOTE | 2019-07-18 10:32 | NUR ---
SPOKE WITH THE PATIENT ABOUT HIS MEDICATIONS. HE LISTED WHAT HE TAKES AND I COMPARED IT WITH THE EXT MED HX. IN ADDITION TO THE EXT MED HX [facility] IN [place] FILLED LASIX 40MG BID #60 06-16-19 - HE TAKES ONE DAILY AT HOME USUALLY BUT DOES NOT WISH TO TAKE IT WHILE HERE IN THE HOSPITAL. HE RECENTLY FILLED THE CITALOPRAM AND TOOK IT FOR 3 DOSES PRIOR TO BEING ADMITTED. HE IS HESITANT TO TAKE IT AGAIN BECAUSE HE HAD STOMACH CRAMPS AND NAUSEA AND DIARRHEA THAT HE HAS NEVER HAD BEFORE AND FEELS IT WAS FROM THAT MEDICATION. I ADDED IT TO THE MED REC TO BE DISCUSSED WITH
--- NOTE | 2019-07-18 10:44 | NUR ---
NOTIFIED DR. SHEPARD OF PT ABG RESULTS
--- NOTE | 2019-07-18 11:10 | NUR ---
Pastoral care visit.
--- NOTE | 2019-07-18 16:30 | NUR ---
CM DISCHARGE PLANNING: Visited with patient et about cost of equipment et completing the process of filling out financial assistance application. F/U with patient's daughter Loreto d/t her gathering the information needed to complete the financial assistance paper work. Both Loreto et patient's Mayi voice understanding of the need of equipment to keep patient medically safe. Jude has agreed to stay tonight to continue to attempt to lower his CO2 level will revisit in the morning.
--- NOTE | 2019-07-18 16:40 | Progress Note - Hospitalist ---
Subjective HPI/CC On Admission Date Seen by Provider: Jul 18, 2019 Time Seen by Provider: 09:20 Pt is a 58yoCM with a PMH of PAD and COPD who presented to the ER due to abdominal pain, vomiting, and diarrhea. Definitive symptoms started yesterday morning and progressed throughout the day. He BMB get cramping abdominal pain and was unable to keep anything down so decided to seek evaluation in the emergency room. He was found to be quite short of breath on arrival and an ABG revealed hypercapnic respiratory failure. He was admitted to the ICU for his respiratory status. He denies a known diagnosis of COPD but he does smoke a pack and a half a day and uses a rescue inhaler as needed. He is on no other inhalers. His only other medications are Percocet and Lasix. He reports he takes his Lasix when necessary for water retention but denies a history of heart failure. He follows with Dr. Mcclellan at [place] for his heart disease. He denies any abdominal symptoms today. He is still on 5 L per NC and he normally does not wear oxygen at home. Subjective/Events-last exam He is feeling better this morning. He does not have a lot of trouble breathing. He is wearing vapotherm. He does not like wearing the BiPAP. He denies fevers and chills. He denies chest pain. Focused Exam Lactate Level 07/16/19 23:06: Lactic Acid Level 1.25 Objective Exam Vital Signs Vital Signs Date Time Temp Pulse Resp B/P (MAP) Pulse Ox O2 Delivery O2 Flow Rate FiO2 07/18/19 15:38 37.2 07/18/19 15:00 87 21 101/90 (94) 93 Vapotherm 40.00 35.00 07/18/19 14:40 35 Capillary Refill : Less Than 3 Seconds General Appearance: No Apparent Distress, WD/WN, Obese Respiratory: Lungs Clear, Normal Breath Sounds, No Respiratory Distress Cardiovascular: Regular Rate, Rhythm, No Edema, No Murmur Gastrointestinal: Normal Bowel Sounds, Non Tender, Soft Extremity: Normal Inspection, Non Tender, No Pedal Edema Neurologic/Psychiatric: Alert, Oriented x3, No Motor/Sensory Deficits, Normal Mood/Affect Skin: Normal Color, Warm/Dry Results/Procedures Lab Laboratory Tests 07/18/19 02:50 Patient resulted labs reviewed. Imaging: Reviewed Imaging Report Assessment/Plan Assessment and Plan Assess & Plan/Chief Complaint COPD with acute exacerbation Acute hypercpanic and hypoxic respiratory failure Likely obesity hypoventilation syndrome Continue steroids Pulm consulted, appreciate recs Titrate oxygen to keep sats >90 MAT protocol SW consulted for assistance obtaining BiPAP HTN PAD s/p AAA repair Consider adding antihypertensives Chronic Back Pain Spinal Stenosis Continue home percocet Tobacco Abuse Recommend Cessation Diagnosis/Problems Diagnosis/Problems (1) Respiratory failure with hypoxia and hypercapnia Status: Acute Qualifiers: Chronicity: acute Qualified Codes: J96.01 - Acute respiratory failure with hypoxia; J96.02 - Acute respiratory failure with hypercapnia (2) COPD with exacerbation Status: Acute Clinical Quality Measures DVT/VTE Risk/Contraindication: Risk Factor Score Per Nursin RFS Level Per Nursing on Admit: 4+=Very High PENG RICO MD Jul 18, 2019 16:40 POS
[2019-07-18] MEDS ORDERED: HALOPERIDOL 5 MG/ML (HALDOL) AMP IM PRN (18:15)
[2019-07-18] MEDS ORDERED: morphine INJ 4 MG/ML 1 ML (VIAL/SYRINGE) IVP PRN (18:15)
[2019-07-18] MEDS: risperiDONE 1 MG (RisperDAL) TAB PO SCH (21:40)
[2019-07-19] VITALS (8 sets, daily range): BP systolic 111–149; BP diastolic 64–103
[2019-07-19] MEDS: RT-ALBUTEROL/IPRATROPIUM 3 ML (DUONEB) VIAL INH SCH ×3 (01:54→11:07)
[2019-07-19] MEDS: oxyCODONE/APAP 10/325MG (PERCOCET 10) TABLET PO PRN (02:00)
[2019-07-19 03:36] LABS: BASOPHILS % (AUTO) 0 % (0-10); EOSINOPHILS % (AUTO) 0 % (0-10); HEMATOCRIT 54 % (40-54); HEMOGLOBIN 16.9 G/DL (13.3-17.7); LYMPHOCYTES # (AUTO) 0.7 X 10^3 (1.0-4.0); LYMPHOCYTES % (AUTO) 6 % (12-44); MEAN CORPUSCULAR HEMOGLOBIN 32 PG (25-34); MEAN CORPUSCULAR HGB CONC 31 G/DL (32-36); MEAN CORPUSCULAR VOLUME 103 FL (80-99); MEAN PLATELET VOLUME 11.5 FL (7.4-10.4); MONOCYTES # (AUTO) 0.7 X 10^3 (0.0-1.0); MONOCYTES % (AUTO) 7 % (0-12); NEUTROPHILS # (AUTO) 9.9 X 10^3 (1.8-7.8); NEUTROPHILS % (AUTO) 87 % (42-75); PLATELET COUNT 162 10^3/uL (130-400); RED CELL DISTRIBUTION WIDTH 14.7 % (10.0-14.5); WHITE BLOOD COUNT 11.3 10^3/uL (4.3-11.0)
[2019-07-19 04:06] LABS: BUN/CREATININE RATIO 25; CALCIUM 8.9 MG/DL (8.5-10.1); CARBON DIOXIDE 28 MMOL/L (21-32); CHLORIDE 97 MMOL/L (98-107); CREATININE SERUM 1.17 MG/DL (0.60-1.30); GFR ESTIMATED > 60; GLUCOSE 150 MG/DL (70-105); PHOSPHORUS 2.1 MG/DL (2.3-4.7); POTASSIUM 3.6 MMOL/L (3.6-5.0); SODIUM 138 MMOL/L (135-145)
[2019-07-19] MEDS ORDERED: POTASSIUM CL 10MEQ/50ML IVPB 100 ML IV ONE (04:49)
[2019-07-19] MEDS: POTASSIUM CL 10MEQ/50ML IVPB 50 ML IV SCH ×2 (04:55→05:45)
[2019-07-19] MEDS: methylPREDNISolone 40 MG/ML (Solu-MEDROL) VIAL IV SCH (04:55)
[2019-07-19] MEDS ORDERED: MAGNESIUM 1 GM/100 ML IVPB 100 ML IV SCH (06:00)
[2019-07-19] MEDS ORDERED: POTASSIUM CL 10MEQ/50ML IVPB 50 ML IV SCH (06:00)
[2019-07-19] MEDS ORDERED: KCL 20 MEQ TAB (K-DUR) PO SCH (06:00)
--- NOTE | 2019-07-19 06:13 | Pulmonary Progress Note ---
Sepsis Event Evaluation Height, Weight, BMI Height: '" Weight: lbs. oz. kg; 41.00 BMI Method: Focused Exam Lactate Level 07/16/19 23:06: Lactic Acid Level 1.25 Exam Exam Vital Signs Date Time Temp Pulse Resp B/P (MAP) Pulse Ox O2 Delivery O2 Flow Rate FiO2 07/19/19 05:00 79 149/79 (102) 95 Vapotherm 35.00 35.00 07/19/19 04:00 77 118/64 (82) 95 Vapotherm 35.00 35.00 07/19/19 03:47 93 Nasal Cannula 40.00 35 07/19/19 03:36 36.8 07/19/19 03:00 93 140/103 (115) 96 Vapotherm 35.00 35.00 07/19/19 02:00 89 119/72 (88) 94 Vapotherm 35.00 35.00 07/19/19 01:55 95 Vapotherm 35.00 35 07/19/19 01:00 84 111/64 (80) 94 Vapotherm 35.00 35.00 07/19/19 01:00 84 07/19/19 00:00 93 Nasal Cannula 40.00 35 07/19/19 00:00 97 136/79 (98) 91 Vapotherm 35.00 35.00 07/18/19 23:28 36.2 95 16 152/72 (98) 96 Vapotherm 35.00 35.00 07/18/19 21:18 95 Vapotherm 40.00 35 07/18/19 21:16 36.8 92 20 147/84 (105) 97 Vapotherm 40.00 07/18/19 20:00 93 Nasal Cannula 40.00 35 07/18/19 19:00 100 07/18/19 18:32 Vapotherm 40.00 45 07/18/19 18:30 94 Vapotherm 40.00 35 07/18/19 17:00 96 13 152/79 (103) 95 Vapotherm 40.00 35.00 07/18/19 16:38 96 Vapotherm 40.00 35 07/18/19 16:00 89 26 141/87 (105) 94 Vapotherm 40.00 35.00 07/18/19 15:38 37.2 07/18/19 15:00 87 21 101/90 (94) 93 Vapotherm 40.00 35.00 07/18/19 14:40 96 Vapotherm 40.00 35 07/18/19 14:00 72 9 148/84 (105) 94 Vapotherm 40.00 35.00 07/18/19 13:00 72 21 155/101 (119) 90 Vapotherm 40.00 35.00 07/18/19 13:00 75 07/18/19 12:00 96 Vapotherm 40.00 35 07/18/19 12:00 69 36 179/129 (146) 84 Vapotherm 40.00 35.00 07/18/19 11:30 36.6 07/18/19 11:00 72 20 152/81 (104) 91 Vapotherm 40.00 35.00 07/18/19 10:52 Vapotherm 40.00 35.00 07/18/19 10:44 95 Vapotherm 40.00 45 07/18/19 10:00 81 13 96 Vapotherm 40.00 45.00 07/18/19 09:00 84 97 Vapotherm 40.00 45.00 07/18/19 08:37 97 Vapotherm 40.00 45 07/18/19 08:15 Vapotherm 40.00 45.00 07/18/19 08:10 Vapotherm 40.00 45 07/18/19 08:03 93 Vapotherm 40.00 45 07/18/19 08:00 79 15 152/125 (134) 85 Nasal Cannula 5.00 07/18/19 07:39 80 26 94 45.00 07/18/19 07:00 67 07/18/19 07:00 92 Nasal Cannula 4.00 07/18/19 07:00 70 15 122/71 (88) 93 Nasal Cannula 5.00 I & O 07/19/19 07:00 Intake Total 3590 ml Output Total 350 ml Balance 3240 ml Height & Weight Height: '" Weight: lbs. oz. kg; 41.00 BMI Method: General Appearance: No Apparent Distress, WD/WN, Obese HEENT: PERRL/EOMI, Pharynx Normal Neck: Full Range of Motion, Non Tender, Supple Respiratory: Lungs Clear, Normal Breath Sounds, No Respiratory Distress Cardiovascular: Regular Rate, Rhythm, No Edema, No Murmur Capillary Refill: Less Than 3 Seconds Peripheral Pulses: 2+ Radial Pulses (R), 2+ Radial Pulses (L) Gastrointestinal: normal bowel sounds (quiescent), soft, no organomegaly; No guarding, No rebound; tenderness (all 4 quadrants), other (. Negative for McBurney's point tenderness, Rovsing sign) Extremity: Normal Inspection, Non Tender, No Pedal Edema Neurologic/Psychiatric: Alert, Oriented x3, No Motor/Sensory Deficits, Normal Mood/Affect Skin: Normal Color, Warm/Dry Lymphatic: No Adenopathy Results Lab Laboratory Tests 07/18/19 02:50 07/19/19 03:02 Assessment/Plan Assessment/Plan Acute on chronic respiratory failure -vent to mask PRN -Pt would benefit from home vent to mask -If pt gets financial aid advisor will be able to get BiPAP for home use -Repeat ABG COPDAE- Pt does not have 02 -Pt will most likely need home 02 -SVNS -Solumedrol -Repeat ABG at 1300 OHS Hx of abdominal aortic aneurysm SANDRA SHEPARD DO Jul 19, 2019 06:13 POS
[2019-07-19] MEDS: RT-ADVAIR HFA 115/21 MCG PER PUFF IH SCH (06:43)
[2019-07-19 06:57] LABS: ABG BASE EXCESS 8.3 MMOL/L (-2.5-2.5); ABG OXYGEN SATURATION 94 % (94-100); ABG PCO2 59 MMHG (35-45); ABG PH 7.37 (7.37-7.43); ABG PO2 75 MMHG (79-93); ABG TCO2 35.4 MMOL/L (21.0-31.0); ALLENS TEST POSITIVE; INSPIRED O2 25L/35%; PATIENT TEMP 37.1; VENTILATOR NO
[2019-07-19] MEDS ORDERED: predniSONE 20 MG TAB PO SCH (07:00)
[2019-07-19] MEDS: risperiDONE 1 MG (RisperDAL) TAB PO SCH (07:53)
--- NOTE | 2019-07-19 09:29 | Diagnostic Imaging Report ---
Indication: COPD exacerbation, hypocapnia and hypoxia. Compared: 07/18 Findings: Bibasilar parenchymal densities of improved favoring reduction in atelectasis. There has been no adverse development. No failure effusion or pneumothorax. Impression: Reduction in basilar opacities presumed decreased atelectasis with no adverse change. Dictated by: Dictated on workstation # [id number]
[2019-07-19] MEDS: ENOXAPARIN 40 MG/0.4 ML (LOVENOX) SYR SC SCH (10:00)
--- NOTE | 2019-07-19 10:14 | NUR ---
SPO2 88% ON ROOM AIR @ REST. REPLACED O2 @ 2 LPM, SPO2 INCREASED TO 94%. WALKED PT FOR 3 MINUTES SPO2 DROPPED TO 87%, INCREASED O2 TO 3 LPM. SPO2 STAYED ABOVE 90% ON 3 LPM. Addendum: 07/19/19 at 1107 by JOSELITO DUPREE RT Amended: Links added.
--- NOTE | 2019-07-19 10:50 | NUR ---
PT STATING IS GOING TO LEAVE AMA. THIS RN EDUCATED PT ON RISKS AND BENEFITS OF LEAVING AMA. PT VERBALIZED UNDERSTANDING OF RISK AND STATED IS STILL LEAVING AMA.
--- NOTE | 2019-07-19 11:21 | NUR ---
Upon entry into his room he is not wearing his oxygen. He will not agree to put it back on. He reports that he is leaving AMA et will not agree to let me set up needed equipment for him of continuous oxygen et bipap. He reports that his primary care doctor will get it for him. Encouraged him that we have everything that we need to set it up for him now. The needed oxygen study has been completed but he continues to deny the need for this at this time. Asked Jude if Mayi was in agreement with his decision et if he had talked with his daughter. He reports that his is "mad at him". She is not in the room. His daughter does not know he is leaving the hospital. He will not agree to any compromises et so his primary care nurse Charisse fontanez myself exited his room on good terms with the patient just not allowing for any further interventions to be done on his behalf.
--- NOTE | 2019-07-19 17:09 | Discharge Summary ---
Discharge Summary Hospital Course Problems/Dx: (1) Respiratory failure with hypoxia and hypercapnia Status: Acute Qualifiers: Qualified Codes: J96.01 - Acute respiratory failure with hypoxia; J96.02 - Acute respiratory failure with hypercapnia (2) COPD with exacerbation Status: Acute Hospital Course Date of Admission: Jul 17, 2019 at 01:25 Admission Diagnosis : Acute respiratory failure with hypoxia and hypercapnia Family Physician/Provider: Pola Hayward MD Date of Discharge: 07/19/19 Discharge Diagnosis: Acute respiratory failure with hypoxia and hypercapnia Hospital Course: Jude Foreman is a 58yoM who presented with GI symptoms and was admitted with acute respiratory failure with hypoxia and hypercapnia. His GI symptoms were attributed to a viral gastroenteritis. He has a long smoking history and likely has underlying COPD which is undiagnosed. He is also morbidly obese and likely has PELON and possible OHS. He was started on BiPAP while inpatient and qualified for home oxygen use. Social work was consulted and worked extensively to set up him with BiPAP at home. On the morning he was to be discharged, he left AGAINST MEDICAL ADVICE. Labs and Pending Lab Test: Laboratory Tests 07/19/19 03:02: White Blood Count 11.3H, Red Blood Count 5.27, Hemoglobin 16.9, Hematocrit 54, Mean Corpuscular Volume 103H, Mean Corpuscular Hemoglobin 32, Mean Corpuscular Hemoglobin Concent 31L, Red Cell Distribution Width 14.7H, Platelet Count 162, Mean Platelet Volume 11.5H, Neutrophils (%) (Auto) 87H, Lymphocytes (%) (Auto) 6L, Monocytes (%) (Auto) 7, Eosinophils (%) (Auto) 0, Basophils (%) (Auto) 0, Neutrophils # (Auto) 9.9H, Lymphocytes # (Auto) 0.7L, Monocytes # (Auto) 0.7, Eosinophils # (Auto) 0.0, Basophils # (Auto) 0.0, Sodium Level 138, Potassium Level 3.6, Chloride Level 97L, Carbon Dioxide Level 28, Anion Gap 13, Blood Urea Nitrogen 29H, Creatinine 1.17, Estimat Glomerular Filtration Rate > 60, BUN/Creatinine Ratio 25, Glucose Level 150H, Mean Blood Glucose [Pending], Hemoglobin A1c [Pending], Calcium Level 8.9, Phosphorus Level 2.1L, Magnesium Level 2.0 07/19/19 06:48: Blood Gas Puncture Site RIGHT RADIAL, Blood Gas Patient Temperature 37.1, Arterial Blood pH 7.37, Arterial Blood Partial Pressure CO2 59H, Arterial Blood Partial Pressure O2 75L, Arterial Blood HCO3 34H, Arterial Blood Total CO2 35.4H , Arterial Blood Oxygen Saturation 94, Arterial Blood Base Excess 8.3H, Mani Test POSITIVE, Blood Gas Ventilator Setting NO, Blood Gas Inspired Oxygen 25L/35% Microbiology 07/17/19 MRSA Screen - Final, Complete MRSA not isolated Home Meds Active Reported Furosemide 40 Mg Tablet 40 Mg PO DAILY Citalopram HBr (Citalopram Hydrobromide) 20 Mg Tablet 20 Mg PO HS Oxycodone-Acetaminophen 10-325 (Oxycodone HCl/Acetaminophen) 1 Each Tablet 1 Tab PO Q6H PRN Assessment/Pt Instructions Patient left AMA. Discharge Planning: <30 minutes discharge planning Discharge Instructions Discharge Diet: No Restrictions Activity as Tolerated: Yes Pneumonia Vaccine Order Indica: Yes Discharge Physical Examination Vital Signs Vital Signs Date Time Temp Pulse Resp B/P (MAP) Pulse Ox O2 Delivery O2 Flow Rate FiO2 07/19/19 10:40 Nasal Cannula 2.00 07/19/19 10:14 94 07/19/19 07:59 37.2 84 16 111/65 (80) 07/19/19 07:53 35 General Appearance: No Apparent Distress, WD/WN HEENT: PERRL/EOMI, Pharynx Normal Respiratory: Lungs Clear, Normal Breath Sounds, No Respiratory Distress Cardiovascular: Regular Rate, Rhythm, No Edema, No Murmur Gastrointestinal: Normal Bowel Sounds, Non Tender, Soft Extremity: Normal Inspection, Non Tender, No Pedal Edema Skin: Normal Color, Warm/Dry Neurologic/Psychiatric: Alert, Oriented x3 Allergies: Coded Allergies: No Known Drug Allergies (Unverified , 07/16/19) Discharge Summary Date of Admission Jul 17, 2019 at 01:25 Date of Discharge Jul 19, 2019 at 11:40 Discharge Date: Jul 19, 2019 Discharge Time: 10:00 Admission Diagnosis Acute respiratory failure with hypoxia and hypercapnia Consults/Procedures Consulations Pulmonology Discharge Diagnosis Acute hypercpanic and hypoxic respiratory failure (1) Respiratory failure with hypoxia and hypercapnia Status: Acute Qualifiers: Qualified Codes: J96.01 - Acute respiratory failure with hypoxia; J96.02 - Acute respiratory failure with hypercapnia (2) COPD with exacerbation Status: Acute Clinical Quality Measures DVT/VTE Risk/Contraindication: Risk Factor Score Per Nursin RFS Level Per Nursing on Admit: 4+=Very High PENG RICO MD Jul 19, 2019 17:08 POS
== END 2019-07-19 11:40 | disposition left against medical advice (07) | DRG 189 ==
LOC: EDUNIT# 22:39 → ER FS 22:41 → ICU 07-17 01:25
PROVIDERS: ADMIT Family Medicine; ATTEND Family Medicine
DX: J96.02 Acute respiratory failure with hypercapnia (principal); J96.01 Acute respiratory failure with hypoxia; J44.1 Chronic obstructive pulmonary disease with (acute) exacerbation; E66.2 Morbid (severe) obesity with alveolar hypoventilation; Z68.41 Body mass index [BMI] 40.0-44.9, adult; A08.4 Viral intestinal infection, unspecified; F17.210 Nicotine dependence, cigarettes, uncomplicated; I49.3 Ventricular premature depolarization; I73.9 Peripheral vascular disease, unspecified; M54.5 Low back pain; Z95.820 Peripheral vascular angioplasty status with implants and grafts; Z90.49 Acquired absence of other specified parts of digestive tract
CPT/HCPCS: 36415; 36600; 71045; 71046; 74177; 80048; 80053; 81000; 82805; 83036; 83605; 83690; 83735; 84100; 84484; 85007; 85025; 85027; 87081; 93005; 93306; 94640; 94660; 94761; 96361; 96374; 96375